=== PATIENT | female | born 1985 | race Caucasian/White ===

== ENCOUNTER 2021-08-28 10:43 | Emergency (ER) | payer SELFPAY ==
[~2021-08-28] VITALS: Ht 160 cm; Wt 74.0 kg
--- OUTSIDE RECORDS SUMMARY | 2021-08-28 10:48 | XMS REPORT ---
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 Name Role Phone Alexandra Maya Unavailable PROBLEMS Type Condition ICD9-CM Code [id number] Code Onset Dates Condition S tatus W/U Status Risk SNOMED Code Notes Problem History of anemia Z86.2 Active confirmed [id number] Problem Mixed hyperlipidemia E78.2 Active confirmed 622895648 Problem Cervical high risk human papillomavirus (HPV) DN A test positive R87.810 Active confirmed 631250639 Problem Atypical squamous cells of u ndetermined significance on cytologic smear of cervix (ASC-US) R87.610 Active confirmed 17760120 Problem Insufficient social insurance and welfare support Z59.7 Active confirmed 776217658 Problem TIFFANY II (cervical intraepithelial neoplasia II) N87 .1 Active confirmed [id number] ALLERGIES No Known Allergies ENCOUNTERS from 1986 to 2021-08-02 Encounter Location Date Provider Diagnosis [facility] [address] [id number] [place], [place] [address] 807 24 Apr, 2021 Alexandra Maya Dietary counseling and surveillance Z71. 3 and Mixed hyperlipidemia E78.2 IMMUNIZATIONS Vaccine Route Administration Date Status Influenza 0.5 mL single-dose syringe (Fluzone) (>/= 6 months ) IM Intramuscular Oct 17, 2020 Administered SOCIAL HISTORY Tobacco Use: Social History Observation Description Date Details (start date - stop date) Former Smoker Sex Assigned At : Social History Observation Description Sex Assigned At Unknown Tobacco/Smoking Question Answer Notes Are you a: former smoker How long has it been since you last smoked ? 5-10 years Sexual History Question Answer Notes Have you ever had an STD No Have you had sex in the last 12 months ? Yes LMP /05/07/21 With Men only Use protection No Archived - SBIRT Question Answer Notes Patient refused/declined SBIRT screening at this time? No When was the last time you had 4 standar d drinks in a day or night? Was that within the last 3 months? No In the last twelve months, did you ever find yourself drinking more than you meant to? No In the last twelve months, did you ever think that maybe you should cut down on your drinking? No In the last twelve months, did you smoke pot, use another street drug, or use a prescription painkiller, stimulant, or sedative for a non-medical reason? No If answering Yes to ANY SBIRT Substance Abuse questions (2-5 above), was the patient referred to senior information security consultant? No REASON FOR REFERRAL No Information VITAL SIGNS Height 66 in Apr, Weight 179.0 lbs Apr, Temperature 98.8 degrees Fahrenheit Apr, BMI 28.89 kg/m2 Apr, Oximetry 98 Apr, Blood pressure systolic 116 mm Hg Apr, Blood pressure diastolic 67 mm Hg Apr, MEDICATIONS No Information PROCEDURES No Information RESULTS Component Value Reference Range Lipid Panel [id number] Reviewed date:05/14/2021 07:16:56 Interpretation: Performing Lab:, [facility] [address] [id number], Phone - [phone], Director - Luis Manuel Cholesterol, Total 127 100-199 Triglycerides 224 0-149 HDL Cholesterol 28 >39 VLDL Cholesterol Immanuel 37 5-40 LDL Chol Calc ([facility]) 62 0-99 Comment: REASON FOR VISIT F/U MEDICAL (GENERAL) HISTORY Type Description Date Surgical History tubal ligation 2009 Hospitalization History childbirth x 3 Goals Section No Information Health Concerns No Information MEDICAL EQUIPMENT No Information MENTAL STATUS No Information FUNCTIONAL STATUS No Information ASSESSMENTS Encounter Date Diagnosis Assessment Notes Treatment Notes Treatm ent Clinical Notes Apr, Dietary counseling and surveillance (ICD-10 - Z7 1.3) Apr, Mixed hyperlipidemia (ICD-10 - E78.2) Stop atorvastatin, will reassess need for antilipid therapy after . Continue healthy diet and regular exercise. Letter provided. PLAN OF TREATMENT Treatment Notes Assessment Notes Clinical Notes Mixed hyperlipidemia Stop atorvastatin, will reas sess need for antilipid therapy after . Continue healthy diet and regular exercise. Letter provided. Next Appt Details prn Reason: Insurance Providers Payer Name Payer Address Payer Phone Insured Name Patient Relati onship to Insured Coverage Start Date Coverage End Date [employer] [address] [place] [address] Marylou Quezada [facility] [address] [facility] [phone] Marylou Quezada self
[2021-08-28] MEDS ORDERED: diphenhydrAMINE 50 MG/ML INJ (BENADRYL) IVP ONE (11:00)
[2021-08-28] MEDS ORDERED: KETOROLAC 30 MG/ML VIAL IVP ONE (11:00)
[2021-08-28] MEDS ORDERED: ONDANSETRON 4 MG/2 ML (SDV) Z0FRAN IVP ONE (11:00)
--- NOTE | 2021-08-28 11:14 | ED Headache ---
General Chief Complaint: Head/Cervical Problems Stated Complaint: MIGRAINE;NECK PAIN Nursing Triage Note: MIGRAINE X 2 DAYS. LEFT SIDE NECK PAIN AND HURTS TO TURN HER NECK. Source: patient History of Present Illness Date Seen by Provider: Aug 28, 2021 Time Seen by Provider: 11:00 Initial Comments 35-year-old female presenting by private vehicle with complaints of migraine headache and left neck pain. She woke up 2 days ago and had pain in her neck and shoulder. She has increased pain with trying to turn her head. She also developed a migraine headache 2 days ago which is exhibiting similar symptoms to her usual migraine headache. She has pain along the left side of her neck into the shoulder. There is muscle spasm and tightness in this area. She woke up with this symptom 2 days ago. She denies any fever, chills, nausea, vomiting, head injury or fall. She has tried taking Excedrin Migraine with no relief. Severity/Quality: severe Location: frontal Prior Headaches/Recent Trauma: no recent headache/trauma, chronic headaches (Chronic recurrent migraines) Modifying Factors: worse with exposure to light, worse with movement Associated Symptoms: No confusion, No fatigue, No facial pain, No fever/chills, No flushing, No loss of consciousness, No nausea/vomiting, No nasal congestion, No nasal drainage, No numbness in legs/feet, No seizures, No sinus infection, No stiff neck, No vision changes Allergies and Home Medications Allergies Coded Allergies: No Known Drug Allergies (Unverified , 08/28/21) Patient Home Medication List Home Medication List Reviewed: Yes Baclofen (Baclofen) 10 Mg Tablet, 10 MG PO TID PRN for MUSCLE SPASMS Prescribed by: KATHERIN BARNEY on 08/28/21 1144 Review of Systems Review of Systems Constitutional: No chills, No fever Eyes: Photophobia Ears, Nose, Mouth, Throat: no symptoms reported Respiratory: no symptoms reported Cardiovascular: no symptoms reported Gastrointestinal: no symptoms reported Genitourinary: no symptoms reported Musculoskeletal: see HPI, muscle cramps (Muscle spasm and tightness in the left trapezius muscle extending up onto her neck and down to the left shoulder) Psychiatric/Neurological: Headache (Feels similar to her usual migraine headache) Past Lqlremo-Uylpkd-Mkfxjc Hx Patient Social History Tobacco Use?: No Use of E-Cig and/or Vaping dev: No Substance use?: No Pt feels they are or have been: No Physical Exam Vital Signs Vital Signs - First Documented 08/28/21 10:50 Temp 36.7 Pulse 88 Resp 18 B/P (MAP) 136/76 (96) Pulse Ox 99 O2 Delivery Room Air Capillary Refill : Less Than 3 Seconds Height, Weight, BMI Height: '" Weight: lbs. oz. kg; 28.00 BMI Method: General Appearance: WD/WN, no apparent distress HEENT: PERRL/EOMI, normal ENT inspection, pharynx normal Neck: non-tender, full range of motion, supple, normal inspection Cardiovascular: normal peripheral pulses, regular rate, rhythm Respiratory: chest non-tender, lungs clear, normal breath sounds Gastrointestinal: normal bowel sounds, soft, no pulsatile mass Extremities: normal range of motion, normal capillary refill, other (Tenderness and muscle spasms to palpation of the left trapezius muscle. No cervical spine vertebral pain or step-offs noted. No crepitus.) Psychiatric: alert, oriented x 3 Crainal Nerves: normal hearing, normal speech, PERRL Coordination/Gait: normal gait Motor/Sensory: no motor deficit, no sensory deficit Skin: normal color, warm/dry Progress/Results/Core Measures Results/Orders My Orders Orders - KATHERIN BARNEY MD Ketorolac Injection (Toradol Injection) (08/28/21 11:00) Ondansetron Injection (Zofran Injectio (08/28/21 11:00) Diphenhydramine Injection (Benadryl Inje (08/28/21 11:00) Orphenadrine Inj (Ed Only) (Norflex Inje (08/28/21 11:38) Ed Iv/Invasive Line Start (08/28/21 11:38) Medications Given in ED Current Medications Medications Dose Ordered Sig/Nino Route Start Time Stop Time Status Last Admin Dose Admin Diphenhydramine HCl 25 mg ONCE ONCE IVP 08/28/21 11:00 08/28/21 11:01 DC 08/28/21 11:05 25 MG Ketorolac Tromethamine 30 mg ONCE ONCE IVP 08/28/21 11:00 08/28/21 11:01 DC 08/28/21 11:07 30 MG Ondansetron HCl 4 mg ONCE ONCE IVP 08/28/21 11:00 08/28/21 11:01 DC 08/28/21 11:06 4 MG Vital Signs/I&O 08/28/21 08/28/21 10:50 11:49 Temp 36.7 36.7 Pulse 88 72 Resp 18 18 B/P (MAP) 136/76 (96) 129/72 Pulse Ox 99 99 O2 Delivery Room Air Room Air Blood Pressure Mean: 96 Progress Progress Note #1: Progress Note Patient reported that typically she gets a shot of Toradol and Benadryl for her pain. She denies any head injury or fall. She woke up with pain in her left trapezius. Will try giving Toradol and Benadryl for her migraine. Progress Note #2: Progress Note On recheck of the patient she states her migraine headache is down to a 3 out of 10 since getting medication. She still had the pain in the left side of her neck so dose of Norflex was added. The exam did not demonstrate any acute intracranial hemorrhage or fracture. Will prescribe muscle relaxer and have patient take ibuprofen for pain and inflammation. Counseled on symptomatic approach of treating inflammation and pain with ice alternating with heat. Departure Impression Primary Impression: Migraine headache without aura Qualified Codes: G43.009 - Migraine without aura, not intractable, without status migrainosus Additional Impression: Strain of left trapezius muscle Qualified Codes: S46.812A - Strain of other muscles, fascia and tendons at shoulder and upper arm level, left arm, initial encounter Disposition: 01 HOME, SELF-CARE Condition: Stable Departure-Patient Inst. Decision time for Depature: 11:40 Referrals: NO,LOCAL PHYSICIAN (PCP) Primary Care Physician [facility] Patient Instructions: Muscle Strain ED, How to Keep Track of Your Headaches, Home Headache Remedies, Using Cold for Pain Add. Discharge Instructions: Use muscle relaxer to help with spasms and pain in left shoulder/neck. May alternate ice and heat to the left trapezius muscle and neck to help with pain and inflammation. Establish care with local clinic. The [facility] clinic in [place] may be reached by calling [phone] if you would like to establish care and follow up with them All discharge instructions reviewed with patient and/or family. Voiced understanding. Scripts Baclofen (Baclofen) 10 Mg Tablet 10 MG PO TID PRN for MUSCLE SPASMS for 5 Days, #15 TAB 0 Refills Prov: ENYART,KATHERIN E MD 08/28/21 Work/School Note: Work Release Form Date Seen in the Emergency Department: Aug 28, 2021 Return to Work: Aug 29, 2021 Restrictions: No Restrictions KATHERIN BARNEY MD Aug 28, 2021 11:14
[2021-08-28] MEDS ORDERED: ORPHENADRINE 60 MG/2 ML (NORFLEX) AMP (ED ONLY) IVP STA (11:38)
[2021-08-28] MEDS ORDERED: BACL10TA PO (11:44)
[2021-08-28 11:49] VITALS: BP 129/72
== END 2021-08-28 11:50 | disposition home or self-care (01) ==
LOC: ER FS 10:44
DX: S46.812A Strain of other muscles, fascia and tendons at shoulder and upper arm level, left arm, initial encounter (principal); G43.009 Migraine without aura, not intractable, without status migrainosus; X58.XXXA Exposure to other specified factors, initial encounter

== ENCOUNTER 2021-10-22 06:55 | Emergency (ER) | payer SELFPAY ==
[~2021-10-22] VITALS: Ht 160 cm; Wt 76.2 kg
[~2021-10-22 06:55] MED LIST: BACL10TA PO
[2021-10-22] MEDS ORDERED: ONDANSETRON 4 MG (ZOFRAN) ORAL DISSOLVE TAB PO STA (07:21)
[2021-10-22 07:33] LABS: BASOPHILS % (AUTO) 1 % (0-10); EOSINOPHILS # (AUTO) 0.1 10^3/uL (0.0-0.3); EOSINOPHILS % (AUTO) 1 % (0-10); HEMATOCRIT 40 % (35-52); HEMOGLOBIN 13.4 g/dL (11.5-16.0); LYMPHOCYTES # (AUTO) 1.8 X 10^3 (1.0-4.0); LYMPHOCYTES % (AUTO) 33 % (12-44); MEAN CORPUSCULAR HEMOGLOBIN 29 pg (25-34); MEAN CORPUSCULAR HGB CONC 34 g/dL (32-36); MEAN CORPUSCULAR VOLUME 85 fL (80-99); MEAN PLATELET VOLUME 10.2 fL (9.0-12.2); MONOCYTES # (AUTO) 0.3 X 10^3 (0.0-1.0); MONOCYTES % (AUTO) 6 % (0-12); NEUTROPHILS # (AUTO) 3.1 X 10^3 (1.8-7.8); NEUTROPHILS % (AUTO) 59 % (42-75); PLATELET COUNT 253 10^3/uL (130-400); WHITE BLOOD COUNT 5.3 10^3/uL (4.3-11.0)
[2021-10-22 07:34] LABS: BASOPHILS # (AUTO) 0.1 10^3/uL (0.0-0.1)
[2021-10-22 07:34] LABS: BACTERIA,URINE LARGE /HPF; BILIRUBIN,URINE NEGATIVE (NEGATIVE); CLARITY,URINE SLIGHTLY CLOUDY; COLOR,URINE STRAW; GLUCOSE, URINE (UA) NEGATIVE (NEGATIVE); KETONES,URINE NEGATIVE (NEGATIVE); LEUKOCYTE ESTERASE ,URINE NEGATIVE (NEGATIVE); NITRITE,URINE NEGATIVE (NEGATIVE); PROTEIN,URINE NEGATIVE (NEGATIVE); WBC,URINE 0-2 /HPF
--- NOTE | 2021-10-22 07:40 | ED Abdominal Pain ---
General Chief Complaint: Abdominal/GI Problems Stated Complaint: NAUSEA Nursing Triage Note: PT AMBULATE TO ROOM FS02 WITH C/O ABD PAIN AND NAUSEA X1 WEEK. PT REPORTS VOMITING X1 5 DAYS AGO. PT STATES SHE MOVED TO [facility] IN [place] AND DOES NOT HAVE A PCP. Source of Information: Patient Exam Limitations: No Limitations History of Present Illness Date Seen by Provider: Oct 22, 2021 Time Seen by Provider: 07:00 Initial Comments Patient is a 35-year-old female who is 4 days late on her menstrual period presents with left upper quadrant/epigastric abdominal discomfort and nausea for 1 week. Patient had one episode of vomiting 5 days ago. Abdominal discomfort is described mild vague and worse with eating. No constipation or diarrhea. No other acute symptoms or complaints.no medications or therapies prior to ED arrival. She recently moved to the area 4 months ago and does not currently have a PCP. She denies dizziness lightheadedness cough, sore throat fever, chest pain shortness of breath. She denies urinary frequency urgency or dysuria. No prior abdominal surgeries Timing/Duration: 6-7 Days Severity/Quality: Mild Location: Other Radiation: Other Activities at Onset: Other Modifying Factors: Improves With Other Associated Symptoms: Other Allergies and Home Medications Allergies Coded Allergies: No Known Drug Allergies (Unverified , 08/28/21) Patient Home Medication List Home Medication List Reviewed: Yes Baclofen (Baclofen) 10 Mg Tablet, 10 MG PO TID PRN for MUSCLE SPASMS Prescribed by: KATHERIN BARNEY on 08/28/21 1144 Review of Systems Review of Systems Constitutional: see HPI EENTM: See HPI Respiratory: See HPI Cardiovascular: See HPI Gastrointestinal: See HPI Genitourinary: See HPI Musculoskeletal: see HPI Skin: see HPI Psychiatric/Neurological: See HPI Endocrine: See HPI Hematologic/Lymphatic: See HPI All Other Systems Reviewed Negative Unless Noted: Yes Past Qxlltss-Irxeqs-Wvurjg Hx Patient Social History Tobacco Use?: Yes Smoking Status: Never a Smoker Smokeless Tobacco Frequency: Never a User Use of E-Cig and/or Vaping dev: No Use of E-Cig and/or Vaping Mak: Never a User Substance use?: No Alcohol Use?: No Pt feels they are or have been: No Physical Exam Vital Signs Vital Signs - First Documented 10/22/21 07:04 Temp 36.1 Pulse 84 Resp 17 B/P (MAP) 129/85 (100) O2 Delivery Room Air Capillary Refill : Less Than 3 Seconds Height/Weight/BMI Height: '" Weight: lbs. oz. kg; 29.00 BMI Method: General Appearance: WD/WN, no apparent distress HEENT: PERRL/EOMI, normal ENT inspection, pharynx normal Neck: non-tender, full range of motion Respiratory: lungs clear, normal breath sounds, no respiratory distress, no accessory muscle use Cardiovascular: regular rate, rhythm, no edema Gastrointestinal: non tender, soft Extremities: normal range of motion, non-tender Back: normal inspection Neurologic/Psychiatric: head teacher II-XII nml as tested, no motor/sensory deficits, alert, oriented x 3 Skin: normal color Focused Exam Sepsis Stage: Ruled Out Progress/Results/Core Measures Results/Orders My Orders Orders - EVELYN SEBASTIAN DO Cbc With Automated Diff (10/22/21 07:21) Comprehensive Metabolic Panel (10/22/21 07:21) Urinalysis (10/22/21 07:21) Urine Bedside - Sdc (10/22/21 07:21) Ondansetron Oral Dissolve Tab (Zofran (10/22/21 07:21) Vital Signs/I&O 10/22/21 07:04 Temp 36.1 Pulse 84 Resp 17 B/P (MAP) 129/85 (100) O2 Delivery Room Air Blood Pressure Mean: 100 Departure Communication (Admissions) Patient's abdomen soft, nonsurgical on repeat exam.. No vomiting in the emergency department. hCG is negative. Lab work reviewed nondiagnostic. Will treat supportively with watchful waiting and PCP referral. Return precautions reviewed. Patient verbalizes understanding agreement with discharge instruct ions prior to departure. Impression Primary Impression: Nausea and vomiting Additional Impression: Abdominal pain Disposition: HOME, SELF-CARE Condition: Stable Departure-Patient Inst. Decision time for Depature: 07:39 Referrals: NO,LOCAL PHYSICIAN (PCP/Family) Primary Care Physician Patient Instructions: Nausea and Vomiting, Adult ED Add. Discharge Instructions: You were evaluated in the emergency department for abdominal discomfort nausea and vomiting. Serum labs and a urinalysis and test were performed which are nondiagnostic. The exact cause of your symptoms has not been determined. Please go home and rest and take newly prescribed medications as d irected. Drink clear liquids only and then progressed to bland diet as tolerated. Follow-up with your local primary care provider for reevaluation and consideration of outpatient gallbladder work-up. In the meantime if you develop new or worsening symptoms, return to the emergency department. All discharge instructions reviewed with patient and/or family. Voiced understanding. Scripts Famotidine (Pepcid) 20 Mg Tablet 20 MG PO BID, #14 TAB Prov: EVELYN SEBASTIAN DO 10/22/21 Ondansetron (Ondansetron Odt) 4 Mg Tab.rapdis 4 MG PO Q6H, #10 TAB Prov: EVELYN SEBASTIAN DO 10/22/21 EVELYN SEBASTIAN DO Oct 22, 2021 07:40
[2021-10-22] MEDS ORDERED: ONDA4TAB11 PO (07:42)
[2021-10-22] MEDS ORDERED: FAMO-119 PO (07:42)
[2021-10-22 07:50] LABS: BILIRUBIN,TOTAL 0.3 MG/DL (0.1-1.0); CALCIUM 9.2 MG/DL (8.5-10.1); CREATININE SERUM 0.79 MG/DL (0.60-1.30); POTASSIUM 4.2 MMOL/L (3.6-5.0)
[2021-10-22 07:51] LABS: ALBUMIN 4.5 GM/DL (3.2-4.5); TOTAL PROTEIN 7.6 GM/DL (6.4-8.2)
[2021-10-22 08:02] VITALS: BP 127/72
== END 2021-10-22 08:02 | disposition home or self-care (01) ==
LOC: EDUNIT# 06:55 → ER FS 06:58
DX: R11.2 Nausea with vomiting, unspecified (principal); R10.13 Epigastric pain; Z72.0 Tobacco use
CPT/HCPCS: 36415; 80053; 81000; 84703; 85025; 87088; 99283

== ENCOUNTER 2022-08-12 10:59 | Emergency (ER) | payer OTHER ==
[~2022-08-12] VITALS: Ht 162.5 cm; Wt 76.2 kg
[~2022-08-12 10:59] MED LIST changes: +FAMO-119 PO; +ONDA4TAB11 PO
[2022-08-12] MEDS ORDERED: LOPERAMIDE 2 MG (IMODIUM) TABLET PO STA (11:31)
[2022-08-12 11:36] LABS: BASOPHILS % (AUTO) 0 % (0-10); EOSINOPHILS # (AUTO) 0.1 10^3/uL (0.0-0.3); EOSINOPHILS % (AUTO) 1 % (0-10); HEMATOCRIT 41 % (35-52); HEMOGLOBIN 13.4 g/dL (11.5-16.0); LYMPHOCYTES # (AUTO) 1.8 10^3/uL (1.0-4.0); LYMPHOCYTES % (AUTO) 24 % (12-44); MEAN CORPUSCULAR HEMOGLOBIN 28 pg (25-34); MEAN CORPUSCULAR HGB CONC 33 g/dL (32-36); MEAN CORPUSCULAR VOLUME 83 fL (80-99); MEAN PLATELET VOLUME 9.7 fL (9.0-12.2); MONOCYTES # (AUTO) 0.8 10^3/uL (0.0-1.0); MONOCYTES % (AUTO) 11 % (0-12); NEUTROPHILS # (AUTO) 4.8 10^3/uL (1.8-7.8); NEUTROPHILS % (AUTO) 63 % (42-75); PLATELET COUNT 341 10^3/uL (130-400); WHITE BLOOD COUNT 7.6 10^3/uL (4.3-11.0)
[2022-08-12 11:39] LABS: ALBUMIN 4.4 GM/DL (3.2-4.5); POTASSIUM 3.7 MMOL/L (3.6-5.0)
[2022-08-12 11:40] LABS: CALCIUM 9.4 MG/DL (8.5-10.1)
--- NOTE | 2022-08-12 11:41 | ED GI ---
General Chief Complaint: Abdominal/GI Problems Stated Complaint: DIARRHEA - ABD PAIN Nursing Triage Note: SATURDAY STARTED HAVING DIARRHEA AND UPSET STOMACH. IMMODIUM ONCE. FEVER 101 LAST NIGHT. HAS NOT TAKEN ANYTHING D/T NAUSEA. History of Present Illness Date Seen by Provider: Aug 12, 2022 Time Seen by Provider: 11:15 Initial Comments 36-year-old female reports for diarrhea that is been happening after any p.o. intake since 08/09/2022. She had COVID approximately 2 weeks ago and took [id number] medications for symptoms. No family members have similar symptoms. She has no chronic GI disorders. She took Imodium 1 time with no improvement in her symptoms. She has been trying liquids and saltines but with continued diarrhea. She reports 1 episode this morning. She denies nausea or vomiting. She has had a colonoscopy and EGD in the past, no chronic GI issues. Patient on her cell phone and reports she is working and must take calls, explained that she will need to limit phone use while being examined or when nurses are trying to care for her. Patient states she must work, she doesn't hav e a choice to quit taking calls. Told patient to let her work know she is in the ED and if she feels sick enough to be here, she needs to take this time off work. Timing/Duration: 4-5 Days Severity/Quality: Mild Location: Generalized Abdomen Radiation: No Radiation Associated Symptoms: Fever/Chills (Last evening, 101, afebrile on presentation here) Allergies and Home Medications Allergies Coded Allergies: No Known Drug Allergies (Unverified , 08/28/21) Patient Home Medication List Home Medication List Reviewed: Yes Baclofen (Baclofen) 10 Mg Tablet, 10 MG PO TID PRN for MUSCLE SPASMS Prescribed by: KATHERIN BARNEY on 08/28/21 1144 Famotidine (Pepcid) 20 Mg Tablet, 20 MG PO BID Prescribed by: EVELYN SEBASTIAN on 10/22/21 0742 Ondansetron (Ondansetron Odt) 4 Mg Tab.rapdis, 4 MG PO Q6H Prescribed by: EVELYN SEBASTIAN on 10/22/21 0742 Review of Systems Review of Systems Constitutional: no symptoms reported, see HPI Gastrointestinal: See HPI; Denies Abdominal Pain; Diarrhea; Denies Nausea; Poor Appetite, Poor Fluid Intake; Denies Vomiting All Other Systems Reviewed Negative Unless Noted: Yes Past Ormycte-Adaqji-Quqhvq Hx Patient Social History Tobacco Use?: No Use of E-Cig and/or Vaping dev: No Substance use?: No Alcohol Use?: No Pt feels they are or have been: No Immunizations Up To Date First/Initial COVID19 Vaccinat: 2020 Second COVID19 Vaccination Jackson: 2020 Family Medical History Reviewed Nursing Family Hx Physical Exam Vital Signs Vital Signs - First Documented 08/12/22 11:15 Temp 36.8 Pulse 111 Resp 18 B/P (MAP) 117/82 (94) Pulse Ox 99 O2 Delivery Room Air Capillary Refill : Height/Weight/BMI Height: '" Weight: lbs. oz. kg; 28.00 BMI Method: General Appearance: WD/WN, no apparent distress HEENT: PERRL/EOMI, normal ENT inspection, TMs normal, pharynx normal Neck: non-tender, full range of motion, supple, normal inspection Respiratory: chest non-tender, lungs clear, normal breath sounds Cardiovascular: normal peripheral pulses, regular rate, rhythm Gastrointestinal: normal bowel sounds, soft; No distended, No guarding, No rebound; tenderness (generalized) Extremities: normal range of motion, non-tender, normal inspection, normal capillary refill Neurologic/Psychiatric: no motor/sensory deficits, alert, normal mood/affect, oriented x 3 Skin: normal color, warm/dry; No jaundice; pallor Progress/Results/Core Measures Results/Orders Lab Results Laboratory Tests Test 08/12/22 11:18 Range/Units White Blood Count 7.6 4.3-11.0 10^3/uL Red Blood Count 4.88 3.80-5.11 10^6/uL Hemoglobin 13.4 11.5-16.0 g/dL Hematocrit 41 35-52 % Mean Corpuscular Volume 83 80-99 fL Mean Corpuscular Hemoglobin 28 25-34 pg Mean Corpuscular Hemoglobin Concent 33 32-36 g/dL Red Cell Distribution Width 12.6 10.0-14.5 % Platelet Count 341 130-400 10^3/uL Mean Platelet Volume 9.7 9.0-12.2 fL Immature Granulocyte % (Auto) 0 % Neutrophils (%) (Auto) 63 42-75 % Lymphocytes (%) (Auto) 24 12-44 % Monocytes (%) (Auto) 11 0-12 % Eosinophils (%) (Auto) 1 0-10 % Basophils (%) (Auto) 0 0-10 % Neutrophils # (Auto) 4.8 1.8-7.8 10^3/uL Lymphocytes # (Auto) 1.8 1.0-4.0 10^3/uL Monocytes # (Auto) 0.8 0.0-1.0 10^3/uL Eosinophils # (Auto) 0.1 0.0-0.3 10^3/uL Basophils # (Auto) 0.0 0.0-0.1 10^3/uL Immature Granulocyte # (Auto) 0.0 0.0-0.1 10^3/uL Urine Color YELLOW Urine Clarity CLEAR Urine pH 6.0 5-9 Urine Specific Ramsey 1.025 H 1.016-1.022 Urine Protein TRACE H NEGATIVE Urine Glucose (UA) NEGATIVE NEGATIVE Urine Ketones 3+ H NEGATIVE Urine Nitrite NEGATIVE NEGATIVE Urine Bilirubin 1+ H NEGATIVE Urine Urobilinogen 0.2 < = 1.0 MG/DL Urine Leukocyte Esterase NEGATIVE NEGATIVE Urine RBC (Auto) TRACE-I H NEGATIVE Urine RBC NONE /HPF Urine WBC NONE /HPF Urine Squamous Epithelial Cells 2-5 /HPF Urine Crystals NONE /LPF Urine Bacteria FEW H /HPF Urine Casts PRESENT /LPF Urine Granular Casts 2-5 H /LPF Urine Mucus NEGATIVE /LPF Urine Culture Indicated NO Sodium Level 137 135-145 MMOL/L Potassium Level 3.7 3.6-5.0 MMOL/L Chloride Level 101 98-107 MMOL/L Carbon Dioxide Level 20 L 21-32 MMOL/L Anion Gap 16 H 5-14 MMOL/L Blood Urea Nitrogen 12 7-18 MG/DL Creatinine 0.95 0.60-1.30 MG/DL Estimat Glomerular Filtration Rate 80 BUN/Creatinine Ratio 13 Glucose Level 87 70-105 MG/DL Calcium Level 9.4 8.5-10.1 MG/DL Corrected Calcium 9.1 8.5-10.1 MG/DL Total Bilirubin 0.6 0.1-1.0 MG/DL Aspartate Amino Transf (AST/SGOT) 23 5-34 U/L Alanine Aminotransferase (ALT/SGPT) 36 0-55 U/L Alkaline Phosphatase 49 40-136 U/L Total Protein 8.3 H 6.4-8.2 GM/DL Albumin 4.4 3.2-4.5 GM/DL Influenza Type A (RT-PCR) Not Detected Not Detecte Influenza Type B (RT-PCR) Not Detected Not Detecte My Orders Orders - [facility] Cbc With Automated Diff (08/12/22 11:27) Comprehensive Metabolic Panel (08/12/22 11:27) Ua Culture If Indicated (08/12/22 11:27) Influenza A And B By Pcr (08/12/22 11:27) Ed Iv/Invasive Line Start (08/12/22 11:31) Ns Iv 1000 Ml (Sodium Chloride 0.9%) (08/12/22 11:45) Loperamide Tablet (Imodium Tablet) (08/12/22 11:31) Urine Bedside (08/12/22 11:31) Vital Signs/I&O 08/12/22 11:15 Temp 36.8 Pulse 111 Resp 18 B/P (MAP) 117/82 (94) Pulse Ox 99 O2 Delivery Room Air Blood Pressure Mean: 94 Progress Progress Note : Time: 11:15 Progress Note Patient seen and evaluated, will obtain labs, normal saline 1 L per IV and continue to monitor. 12:15 patient reports improvement in symptoms. No diarrhea since admission. Taking sips of water and Pedialyte. Discharge instructions and return precautions reviewed. Departure Impression Primary Impression: Diarrhea Qualified Codes: R19.7 - Diarrhea, unspecified Additional Impression: UTI (urinary tract infection) Qualified Codes: N30.01 - Acute cystitis with hematuria Disposition: HOME, SELF-CARE Condition: Improved Departure-Patient Inst. Decision time for Depature: 12:15 Referrals: NO,LOCAL PHYSICIAN (PCP) Primary Care Physician LISA LUNDBERG APRN (Family) Primary Care Physician Patient Instructions: Diarrhea and Travelers' Diarrhea, Adult (DC) Add. Discharge Instructions: Take Imodium, 2 tablets every 4 hours as needed for diarrhea. Strict clear liquid diet for the next 4 to 6 hours then bland diet as tolerated for the next 24 hours. If diarrhea subsides, you may slowly resume a normal diet, avoid fried, greasy or spicy foods for the next week. Increase water, Pedialyte or Gatorade in your diet, 16 ounces every 2 hours while awake. You can take an [id number] probiotic daily for the next 2 weeks. Follow-up with your primary care provider if symptoms or not improving or worsen. Return to the emergency department for new, urgent healthcare problems. All discharge instructions reviewed with patient and/or family. Voiced understanding. Scripts Nitrofurantoin Monohyd/M-Cryst (Macrobid 100 mg Capsule) 100 Mg Capsule 1 TAB PO BID, #6 CAP 0 Refills Prov: CURLY MCLEOD 08/12/22 CURLY MCLEOD Aug 12, 2022 11:41
[2022-08-12 11:42] LABS: CLARITY,URINE CLEAR; COLOR,URINE YELLOW; GLUCOSE, URINE (UA) NEGATIVE (NEGATIVE); KETONES,URINE 3+ (NEGATIVE); LEUKOCYTE ESTERASE ,URINE NEGATIVE (NEGATIVE); NITRITE,URINE NEGATIVE (NEGATIVE); PROTEIN,URINE TRACE (NEGATIVE); TOTAL PROTEIN 8.3 GM/DL (6.4-8.2)
[2022-08-12 11:43] LABS: BILIRUBIN,TOTAL 0.6 MG/DL (0.1-1.0)
[2022-08-12 11:45] LABS: CREATININE SERUM 0.95 MG/DL (0.60-1.30)
[2022-08-12] MEDS ORDERED: NS IV 1000 ML 1,000 ML IV SCH (11:45)
[2022-08-12 12:10] LABS: BACTERIA,URINE FEW /HPF; BILIRUBIN,URINE 1+ (NEGATIVE)
[2022-08-12] MEDS ORDERED: NITR-65 PO (12:34)
[2022-08-12 12:50] VITALS: BP 114/76
== END 2022-08-12 12:53 | disposition home or self-care (01) ==
LOC: EDUNIT# 10:59 → ER 11:00
DX: N39.0 Urinary tract infection, site not specified (principal); R19.7 Diarrhea, unspecified; Z86.16 Personal history of COVID-19
CPT/HCPCS: 36415; 80053; 81000; 84703; 85025